=== PATIENT | female | born 1990 | race American Indian/Alaskan Native ===

== ENCOUNTER 2016-10-01 22:21 | Emergency (ER) | payer MEDICAID ==
[2016-10-01 22:34] VITALS: BP 121/78
--- NOTE | 2016-10-02 00:22 | EDM.PDOC ---
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 She report blood on tissue after wiping. denies any cramping or spotting. does have upper epigastric pain. denies any fever or chills. denies use of drugs or etoh. Onset: Today Duration: Hour(s):, Waxing/Waning Location: Reports: Pelvis Quality: Reports: Pressure (epigastric area.) Severity: Mild Improves with: Reports: None Worsens with: Reports: None Associated Symptoms: Reports: No Other Symptoms - Related Data Allergies Allergy/AdvReac Type Severity Reaction Status Date / Time cephalexin [From Keflex] Allergy Hives Verified 10/01/16 22:35 gabapentin Allergy Abdominal Verified 10/01/16 22:35 Cramps metoclopramide [From Reglan] Allergy Swelling Verified 10/01/16 22:35 Home Meds: Home Meds Acetaminophen [Tylenol] 650 mg PO ASDIRECTED 05/12/13 [History] Pregabalin [Lyrica] 150 mg PO TID 05/12/13 [History] ALPRAZolam [Alprazolam] 0.5 mg PO TID 12/24/15 [History] Past Medical History Cardiovascular History: Reports: Heart Murmur Gastrointestinal History: Reports: GERD, GI Bleed Other Gastrointestinal History: [employer] 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 History: Reports: Musculoskeletal History: Reports: Back Pain, Chronic, Fracture, Fibromyalgia Other Musculoskeletal History: RA, SCOLIOSIS, R HAND 5TH DIGIT REPAIR Neurological History: Reports: Concussion Psychiatric History: Reports: Anxiety, Suicide Attempt Endocrine/Metabolic History: Reports: Diabetes, Type II Other Immunologic History: RA - Infectious Disease History Infectious Disease History: Reports: Hepatitis C Other Infectious Disease History: unknown Social & Family History - Tobacco Use Smoking Status *Q: Current Every Day Smoker Years of Tobacco use: 12 Packs/Tins Daily: 0.2 - Caffeine Use Caffeine Use: Reports: Coffee, Soda - Alcohol Use Days Per Week of Alcohol Use: 0 - Recreational Drug Use Recreational Drug Use: No Drug Use in Last 12 Months: Yes Recreational Drug Type: Reports: Amphetamines (Speed), Marijuana/Hashish, Methamphetamine Recreational Drug Use Frequency: Patient Refuses To Answer - Living Situation & Occupation Living situation: Reports: Single, with Family (lives in [place], [place]) ED ROS GENERAL - Review of Systems Review Of Systems: See Below Constitutional: Reports: No Symptoms HEENT: Reports: No Symptoms Respiratory: Reports: No Symptoms Cardiovascular: Reports: No Symptoms Endocrine: Reports: No Symptoms GI/Abdominal: Reports: Abdominal Pain (epigastric), Other (vaginal spotting) : Reports: Other (IUP at 17 weeks) Musculoskeletal: Reports: No Symptoms Skin: Reports: No Symptoms Neurological: Reports: No Symptoms Psychiatric: Reports: No Symptoms Hematologic/Lymphatic: Reports: No Symptoms Immunologic: Reports: No Symptoms ED EXAM, GENERAL - Physical Exam Exam: See Below Exam Limited By: No Limitations General Appearance: Alert, WD/WN, No Apparent Distress Throat/Mouth: Normal Inspection, Normal Lips Head: Atraumatic, Normocephalic Neck: Normal Inspection, Supple, Non-Tender, Full Range of Motion Respiratory/Chest: No Respiratory Distress, Lungs Clear, Normal Breath Sounds, No Accessory Muscle Use Cardiovascular: Regular Rate, Rhythm, No Edema, No Murmur GI/Abdominal: Normal Bowel Sounds, Soft, Non-Tender, No Organomegaly, No Distention, No Abnormal Bruit, No Mass (Female) Exam: Deferred (declines exam, request ob ultrasound) Rectal (Female) Exam: Deferred Back Exam: Normal Inspection, Full Range of Motion, NT Extremities: Normal Inspection, Normal Range of Motion, Non-Tender, Normal Capillary Refill, No Pedal Edema Neurological: Alert Psychiatric: Normal Affect, Normal Mood Skin Exam: Warm, Dry, Intact, Normal Color, No Rash Lymphatic: No Adenopathy Course - Vital Signs Last Recorded V/S: Last Vital Signs Temp 36.7 C 10/01/16 22:32 Pulse 107 H 10/01/16 22:32 Resp 15 10/01/16 22:32 BP 121/78 10/01/16 22:32 Pulse Ox 98 10/01/16 22:32 - Orders/Labs/Meds Orders: Active Orders 24 hr Category Date Time Status OB Ltd 1 or More Fetus [US] Stat Exams 10/01/16 23:14 Taken Pantoprazole [ProTONIX] Med 10/02/16 00:30 Active 40 mg PO DAILY Medication Orders Pantoprazole Sodium (Protonix) 40 mg PO DAILY [facility] Last Admin: 10/02/16 00:30 Dose: 40 mg Labs: Laboratory Tests 10/01/16 Range/Units 23:00 Urine Color Yellow Urine Appearance Clear Urine pH 6.0 (4.5-8.0) Ur Specific [place] 1.025 (1.008-1.030) Urine Protein Negative (NEGATIVE) mg/dL Urine Glucose (UA) Normal (NEGATIVE) mg/dL Urine Ketones Negative (NEGATIVE) mg/dL Urine Occult Blood Negative (NEGATIVE) Urine Nitrite Negative (NEGATIVE) Urine Bilirubin Negative (NEGATIVE) Urine Urobilinogen Normal (NORMAL) mg/dL Ur Leukocyte Esterase Negative (NEGATIVE) Urine RBC 0-5 (0-5) Urine WBC 0-5 (0-5) Ur Epithelial Cells Moderate Amorphous Sediment Not seen Urine Bacteria Few Urine Mucus Few Meds: Medications Generic Name Dose Route Start Last Admin Trade Name Laura PRN Reason Stop Dose Admin Pantoprazole Sodium 40 mg 10/02/16 00:30 10/02/16 00:30 Protonix PO 40 mg DAILY [facility] Administration - Re-Assessments/Exams Free Text/Narrative Re-Assessment/Exam: 10/02/16 00:39 ob ultrasound reviewed with Patient -viable at 17 weeks -no abruption or placenta previa Departure - Departure Time of Disposition: 00:40 Disposition: Home, Self-Care 01 Condition: Good Clinical Impression: Spotting affecting in second trimester Epigastric abdominal tenderness Qualifiers: Presence of rebound: present Qualified Code(s): R10.826 - Epigastric rebound abdominal tenderness - Discharge Information Instructions: Vaginal Bleeding During , Third Trimester, [id number] Referrals: Karen James NP [Primary Care Provider] - Forms: ED Department Discharge Care Plan Goals: spotting in 17 weeks gestation -rest -push fluids -follow up with OB Provider this week return to ER if vaginal bleeding, cramping, pain , fever, chills or any concerns. Epigastric pain -trial of Protonix, given 40mg po in ER -follow up with OB Provider. - Problem List & Annotations (1) Epigastric abdominal tenderness SNOMED Code(s): 338433420 Code(s): R10.816 - EPIGASTRIC ABDOMINAL TENDERNESS Status: Acute Priority : Low Current Visit: Yes Qualifiers: Presence of rebound: present Qualified Code(s): R10.826 - Epigastric rebound abdominal tenderness (2) Spotting affecting in second trimester SNOMED Code(s): 396300255, 894454730, 585012729 Code(s): O26.852 - SPOTTING COMPLICATING , SECOND TRIMESTER Status : Acute Priority: High Current Visit: Yes - My Orders Last 24 Hours: My Active Orders 10/01/16 23:14 OB Ltd 1 or More Fetus [US] Stat 10/02/16 00:30 Pantoprazole [ProTONIX] 40 mg PO DAILY - Assessment/Plan Last 24 Hours: My Active Orders 10/01/16 23:14 OB Ltd 1 or More Fetus [US] Stat 10/02/16 00:30 Pantoprazole [ProTONIX] 40 mg PO DAILY Plan: spotting in 17 weeks gestation -rest -push fluids -follow up with OB Provider this week return to ER if vaginal bleeding, cramping, pain , fever, chills or any concerns. Epigastric pain -trial of Protonix, given 40mg po in ER -follow up with OB Provider.
[2016-10-02] MEDS ORDERED: Pantoprazole 40 MG Tab.CR PO SCH (00:30)
== END 2016-10-02 00:45 | disposition home or self-care (01) ==
LOC: JP.ED 22:21
DX: O26.852 Spotting complicating pregnancy, second trimester (principal); O99.89 Other specified diseases and conditions complicating pregnancy, childbirth and the puerperium; R10.826 Epigastric rebound abdominal tenderness; O99.612 Diseases of the digestive system complicating pregnancy, second trimester; K21.9 Gastro-esophageal reflux disease without esophagitis; O99.342 Other mental disorders complicating pregnancy, second trimester; F41.9 Anxiety disorder, unspecified; O99.282 Endocrine, nutritional and metabolic diseases complicating pregnancy, second trimester; E11.9 Type 2 diabetes mellitus without complications; O99.332 Smoking (tobacco) complicating pregnancy, second trimester; F17.210 Nicotine dependence, cigarettes, uncomplicated; Z3A.17 17 weeks gestation of pregnancy; Z88.1 Allergy status to other antibiotic agents; Z88.8 Allergy status to other drugs, medicaments and biological substances
CPT/HCPCS: 76815; 81001; 99284; A9270

== ENCOUNTER 2017-04-19 15:21 | Emergency (ER) | payer MEDICAID ==
[2017-04-19] MEDS ORDERED: Sodium Chloride 0.9% 1,000 ML IV SCH ×2 (16:30→16:45)
--- NOTE | 2017-04-19 16:34 | EDM.PDOC ---
<Alejandra Gaona - Last Filed: 04/19/17 16:28> ED HPI GENERAL MEDICAL PROBLEM - General Chief Complaint: General Stated Complaint: MEDICAL VIA NORTH Time Seen by Provider: 04/19/17 15:40 Source of Information: Reports: Patient History Limitations: Reports: No Limitations - History of Present Illness INITIAL COMMENTS - FREE TEXT/NARRATIVE: pt arrived with a elvated temp . History of chilling and coughing. Sh has a sore throat. She hurts all over. Onset: Other ( She has been sick for 2-3 days. ) Duration: Day(s): Location: Reports: Neck, Chest, Generalized, Other (Pt has generalized body aches. ) Associated Symptoms: Reports: Cough, Diaphoresis, Fever/Chills, Loss of Appetite , Nausea/Vomiting, Weakness, Other (diarrhea. ) Headache Pain Score (Numeric/FACES): 8 - Related Data Allergies Allergy/AdvReac Type Severity Reaction Status Date / Time cephalexin [From Keflex] Allergy Hives Verified 10/01/16 22:35 gabapentin Allergy Abdominal Verified 10/01/16 22:35 Cramps metoclopramide [From Reglan] Allergy Swelling Verified 10/01/16 22:35 Home Meds: Home Meds Acetaminophen [Tylenol] 650 mg PO ASDIRECTED 05/12/13 [History] Pregabalin [Lyrica] 150 mg PO TID 05/12/13 [History] ALPRAZolam [Alprazolam] 0.5 mg PO TID 12/24/15 [History] Past Medical History Cardiovascular History: Reports: Heart Murmur Gastrointestinal History: Reports: GERD, GI Bleed Other Gastrointestinal History: [employer] History: Reports: Musculoskeletal History: Reports: Back Pain, Chronic, Fracture, Fibromyalgia Other Musculoskeletal History: RA, SCOLIOSIS, R HAND 5TH DIGIT REPAIR Neurological History: Reports: Concussion Psychiatric History: Reports: Anxiety, Suicide Attempt Endocrine/Metabolic History: Reports: Diabetes, Type II Other Immunologic History: RA - Infectious Disease History Infectious Disease History: Reports: Hepatitis C Other Infectious Disease History: unknown Social & Family History - Tobacco Use Smoking Status *Q: Current Every Day Smoker Years of Tobacco use: 15 Packs/Tins Daily: 0.5 - Caffeine Use Caffeine Use: Reports: Soda - Alcohol Use Days Per Week of Alcohol Use: 0 - Recreational Drug Use Recreational Drug Use: No Drug Use in Last 12 Months: Yes Recreational Drug Type: Reports: Amphetamines (Speed), Marijuana/Hashish, Methamphetamine Recreational Drug Use Frequency: Patient Refuses To Answer - Living Situation & Occupation Living situation: Reports: Single, with Family (lives in [place], [place]) ED ROS GENERAL - Review of Systems Review Of Systems: See Below Constitutional: Reports: Fever, Chills, Malaise, Weakness HEENT: Reports: Throat Pain Respiratory: Reports: No Symptoms, Shortness of Breath, Cough Cardiovascular: Reports: No Symptoms Endocrine: Reports: No Symptoms GI/Abdominal: Reports: Nausea, Vomiting : Reports: No Symptoms Musculoskeletal: Reports: No Symptoms Skin: Reports: No Symptoms Neurological: Reports: No Symptoms ED EXAM, GENERAL - Physical Exam Exam: See Below Free Text/Narrative:: pt has shaking chills. She seemes agitated and is not able to give a good history. She has a sore throat, cough and vomiting. She has had shaking chills. Exam Limited By: No Limitations General Appearance: Alert, Anxious, Mild Distress Ears: Normal TMs Nose: Normal Inspection Throat/Mouth: Other ( mild redness in the throat) Head: Atraumatic Neck: Normal Inspection, Lymphadenopathy (R), Lymphadenopathy (L) Respiratory/Chest: No Respiratory Distress Cardiovascular: Regular Rate, Rhythm GI/Abdominal: Soft, Other (mild tenderness present) (Female) Exam: Deferred Rectal (Female) Exam: Deferred Back Exam: Normal Inspection Extremities: Normal Inspection Neurological: Alert, Oriented, Normal Cognition Course - Vital Signs Last Recorded V/S: Last Vital Signs Temp 100.3 F 04/19/17 18:57 Pulse 115 H 04/19/17 15:22 Resp 20 04/19/17 15:22 BP 116/65 04/19/17 18:57 Pulse Ox 99 04/19/17 15:22 - Orders/Labs/Meds Orders: Active Orders 24 hr Category Date Time Status Chest 2V [CR] Stat Exams 04/19/17 17:14 Taken CULTURE STREP A CONFIRMATION [RM] Stat Lab 04/19/17 16:34 Results STREP SCRN A RAPID W CULT CONF [RM] Stat Lab 04/19/17 16:34 Results Sodium Chloride 0.9% [Normal Saline] 1,000 ml Med 04/19/17 16:30 Active IV ASDIRECTED Sodium Chloride 0.9% [Normal Saline] 1,000 ml Med 04/19/17 16:45 Active IV ASDIRECTED Medication Orders Sodium Chloride (Normal Saline) 1,000 mls @ 999 mls/hr IV ASDIRECTED [facility] Last Admin: 04/19/17 16:34 Dose: 999 mls/hr Sodium Chloride (Normal Saline) 1,000 mls @ 999 mls/hr IV ASDIRECTED [facility] Last Admin: 04/19/17 18:41 Dose: 999 mls/hr Labs: Laboratory Tests 04/19/17 04/19/17 04/19/17 Range/Units 16:38 16:38 16:38 WBC 7.9 (4.5-11.0) K/uL RBC 5.82 H (3.30-5.50) M/uL Hgb 14.6 D (12.0-15.0) g/dL Hct 44.9 (36.0-48.0) % MCV 77 L (80-98) fL MCH 25 L (27-31) pg MCHC 33 (32-36) % Plt Count 317 (150-400) K/uL Neut % (Auto) 67 H (36-66) % Lymph % (Auto) 22 L (24-44) % [place] % (Auto) 10 H (2-6) % Eos % (Auto) 1 L (2-4) % Baso % (Auto) 1 (0-1) % Sodium 141 (140-148) mmol/L Potassium 4.1 (3.6-5.2) mmol/L Chloride 105 (100-108) mmol/L Carbon Dioxide 27 (21-32) mmol/L Anion Gap 8.8 (5.0-14.0) mmol/L BUN 9 (7-18) mg/dL Creatinine 0.9 D (0.6-1.0) mg/dL Est Cr Clr Drug Dosing 76.98 mL/min Estimated GFR (MDRD) > 60 (>60) Glucose 103 (74-106) mg/dL Lactic Acid 1.9 (0.4-2.0) mmol/L Calcium 9.1 D (8.5-10.1) mg/dL Total Bilirubin 0.3 (0.2-1.0) mg/dL AST 14 L (15-37) U/L ALT 22 (12-78) U/L Alkaline Phosphatase 58 (46-116) U/L Total Protein 7.3 (6.4-8.2) g/dL Albumin 3.8 (3.4-5.0) g/dL Globulin 3.5 (2.3-3.5) g/dL Albumin/Globulin Ratio 1.1 L (1.2-2.2) Meds: Medications Generic Name Dose Route Start Last Admin Trade Name Freq PRN Reason Stop Dose Admin Sodium Chloride 1,000 mls @ 999 mls/hr 04/19/17 16:30 04/19/17 16:34 Normal Saline IV 999 mls/hr ASDIRECTED [facility] Administration Sodium Chloride 1,000 mls @ 999 mls/hr 04/19/17 16:45 04/19/17 18:41 Normal Saline IV 999 mls/hr ASDIRECTED [facility] Administration Discontinued Medications Generic Name Dose Route Start Last Admin Trade Name Freq PRN Reason Stop Dose Admin Acetaminophen 650 mg 04/19/17 16:35 04/19/17 16:40 Tylenol PO 04/19/17 16:36 650 mg NOW ONE Administration Guaifenesin/Codeine Phosphate 10 ml 04/19/17 17:59 04/19/17 18:11 Robitussin Ac PO 04/19/17 18:00 10 ml ONETIME ONE Administration Hydromorphone HCl 1 mg 04/19/17 18:50 04/19/17 18:54 Dilaudid IVPUSH 04/19/17 18:51 1 mg ONETIME ONE Administration Ketorolac Tromethamine 30 mg 04/19/17 16:35 04/19/17 16:43 Toradol IVPUSH 04/19/17 16:36 Not Given ONETIME ONE Ketorolac Tromethamine 30 mg 04/19/17 17:59 04/19/17 18:19 Toradol IVPUSH 04/19/17 18:00 Not Given ONETIME ONE Departure - Departure Disposition: Home, Self-Care 01 Clinical Impression: Bronchitis - Discharge Information Referrals: PCP,None [Primary Care Provider] - Forms: ED Department Discharge Additional Instructions: Take full course of antibiotics, use Robitussin-AC as needed help suppress the cough, continue use Tylenol to help suppress the fever, please follow-up with your primary care provider on Friday if not better, call return to the emergency department worsening of symptoms <OfficerFederico - Last Filed: 04/19/17 19:20> Course - Re-Assessments/Exams Free Text/Narrative Re-Assessment/Exam: 04/19/17 18:00 Took over care from Dr. Gaona at 1730, continues to have cough headache body aches I did review lab work with her, will try Toradol for body aches and Robitussin-AC for the cough Does have an allergy to Toradol this was picked up by nursing staff therefore was not given, will try hydromorphone 04/19/17 18:51 Departure - Departure Time of Disposition: 19:19 Condition: Good - Assessment/Plan Plan: Assessment Acuity = acute Site and laterality = bronchitis Etiology = probable bacterial cause Manifestations = cough Location of injury = Home Lab values = CBC, CMP unremarkable lactic acid normal 1.9 chest x-ray I did review films myself I cannot appreciate any acute process, the official read from radiology is pending Plan She does have an allergy to NSAIDs which cause GI bleed she could take Toradol if needed this was not provided, was given 1 mg Dilaudid had good relief of her headache Robitussin-AC helped with the cough plan is discharge home with azithromycin 5 day course as well as Robitussin-AC 10 mL 3 times a day when necessary she can have follow-up appointment with her primary care on Friday This note was dictated using [employer] voice recognition software please call with any questions on syntax or shauna.
[2017-04-19] MEDS ORDERED: Ketorolac 30 MG/ML SDV IVPUSH ONE ×2 (16:35→17:59)
[2017-04-19] MEDS ORDERED: Acetaminophen 325 MG Tab PO ONE (16:35)
[2017-04-19] MEDS ORDERED: Codeine/guaiFENesin 100mg-10 MG/5 ML Syrup 10 ML Cup PO ONE (17:59)
[2017-04-19] MEDS ORDERED: HYDROmorphone 1 MG/ML Syringe IVPUSH ONE (18:50)
[2017-04-19 18:58] VITALS: BP 116/65
--- NOTE | 2017-04-21 09:15 | CR ---
Chest 2V HISTORY: fever and chilling. COMPARISON: 03/30/2006 FINDINGS: Lungs appear clear and normally aerated. Cardiomediastinal silhouette is within normal limits. No vas cular redistribution or pleural fluid can be seen. Bony structures and soft tissues are unremarkable. IMPRESSION: No acute chest abnormality identified.
== END 2017-04-19 19:40 | disposition home or self-care (01) ==
LOC: JP.ED 15:21
DX: J40 Bronchitis, not specified as acute or chronic (principal); E11.9 Type 2 diabetes mellitus without complications; F17.210 Nicotine dependence, cigarettes, uncomplicated; Z88.1 Allergy status to other antibiotic agents; Z88.8 Allergy status to other drugs, medicaments and biological substances; Z79.899 Other long term (current) drug therapy
CPT/HCPCS: 36415; 71046; 80053; 83605; 85025; 87077; 87081; 87430; 87804; 96361; 96374; 99284; A9270; J1170; J7040

== ENCOUNTER 2018-07-14 17:59 | Emergency (ER) | payer MEDICAID ==
[2018-07-14 18:19] VITALS: BP 110/79
[2018-07-14] MEDS ORDERED: Lidocaine 1% 20 ML MDV INJECT ONE (18:32)
[2018-07-14] MEDS ORDERED: Bacitracin Oint 1 GM U/D Packet TOP ONE (18:33)
--- NOTE | 2018-07-14 18:36 | EDM.PDOC ---
ED HPI GENERAL MEDICAL PROBLEM - General Chief Complaint: Laceration Stated Complaint: cut arm working on car Time Seen by Provider: 07/14/18 18:33 Source of Information: Reports: Patient History Limitations: Reports: No Limitations - History of Present Illness INITIAL COMMENTS - FREE TEXT/NARRATIVE: pt arrived with a 2 inch laceration in the left forearm area onthe mccarthy aspect. Onset: Today, Sudden, Other (pt states she was working on a car and she cut her self on some of the parts. ) Duration: Hour(s): Location: Reports: Upper Extremity, Left Associated Symptoms: Reports: No Other Symptoms Left Arm Pain Score (Numeric/FACES): 5 - Related Data Allergies Allergy/AdvReac Type Severity Reaction Status Date / Time cephalexin [From Keflex] Allergy Hives Verified 01/17/18 12:31 gabapentin Allergy Abdominal Verified 01/17/18 12:31 Cramps metoclopramide [From Reglan] Allergy Swelling Verified 01/17/18 12:31 Home Meds: Home Meds Acetaminophen/Codeine [Tylenol with Codeine No.3 300MG/30MG] 01/17/18 [History] Doxepin [SINEquan] 01/17/18 [History] FLUoxetine HCl [Prozac] 01/17/18 [History] Past Medical History Cardiovascular History: Reports: Heart Murmur Gastrointestinal History: Reports: GERD, GI Bleed Other Gastrointestinal History: [employer] History: Reports: Musculoskeletal History: Reports: Back Pain, Chronic, Fracture, Fibromyalgia Other Musculoskeletal History: RA, SCOLIOSIS, R HAND 5TH DIGIT REPAIR Neurological History: Reports: Concussion Psychiatric History: Reports: Anxiety, Suicide Attempt Endocrine/Metabolic History: Reports: Diabetes, Type II Other Immunologic History: RA - Infectious Disease History Infectious Disease History: Reports: Hepatitis C Other Infectious Disease History: unknown Social & Family History - Tobacco Use Smoking Status *Q: Current Every Day Smoker Years of Tobacco use: 15 Packs/Tins Daily: 0.5 - Caffeine Use Caffeine Use: Reports: Coffee, Energy Drinks, Soda - Recreational Drug Use Recreational Drug Use: Yes Recreational Drug Type: Reports: Marijuana/Hashish - Living Situation & Occupation Living situation: Reports: Single, with Family (lives in [place], [place]) ED ROS GENERAL - Review of Systems Review Of Systems: See Below Constitutional: Reports: No Symptoms HEENT: Reports: No Symptoms Respiratory: Reports: No Symptoms Cardiovascular: Reports: No Symptoms Endocrine: Reports: No Symptoms GI/Abdominal: Reports: No Symptoms : Reports: No Symptoms Musculoskeletal: Reports: Other (pt has a 2 inch laceration on the mccarthy aspect of the left arm--lower. ) ED EXAM, SKIN/RASH Exam: See Below Text/Narrative:: pt has a 2 inch laceration of the left forearm. She is current with her tetanus. Exam Limited By: No Limitations General Appearance: Alert, Anxious, Moderate Distress Ears: Normal TMs Nose: Normal Inspection Throat/Mouth: Normal Inspection Head: Atraumatic Neck: Normal Inspection Extremities: Other ( pt has a 2 inch laceration of ther forearm. This is deep to the subq. She has normal sensation and normal motion of fingers. ) Course - Vital Signs Last Recorded V/S: Last Vital Signs Temp 36.3 C 07/14/18 18:19 Pulse 86 07/14/18 18:19 Resp 16 07/14/18 18:19 BP 110/79 07/14/18 18:19 Pulse Ox 99 07/14/18 18:19 - Orders/Labs/Meds Meds: Medications Discontinued Medications Generic Name Dose Route Start Last Admin Trade Name Freq PRN Reason Stop Dose Admin Bacitracin 1 dose 07/14/18 18:33 07/14/18 18:43 Bacitracin Oint 1 Gm TOP 07/14/18 18:34 1 dose ONETIME ONE Administration Lidocaine HCl 20 ml 07/14/18 18:32 07/14/18 18:43 Xylocaine 1% INJECT 07/14/18 18:33 20 ml ONETIME ONE Administration - Re-Assessments/Exams Free Text/Narrative Re-Assessment/Exam: 07/14/18 19:12 pt had a 2 inch laceration on the left forearm. The area was infiltrated with lidocsine and scrubbed well. She had sensation in her hand that was normal. She was able to move her fingers with out difficulty. The wound was closed in a layered manner with 5-0 chromic and 5-0 prolene. It was dressed with bacatracin. Departure - Departure Time of Disposition: 19:14 Disposition: Home, Self-Care 01 Condition: Fair Clinical Impression: Laceration - Discharge Information Referrals: PCP,None [Primary Care Provider] - Forms: ED Department Discharge Care Plan Goals: keep dry , no fuirther ointments, cover with a dry dressing, SR in 7-8 days, amoxicillin 500mg tid for 5 days. motrin 600mg q6h prn for pain
[2018-07-14] MEDS ORDERED: Acetaminophen/HYDROcodone 325-5 MG Tab PO ONE (19:18)
[2018-07-14] MEDS ORDERED: Ibuprofen 600 MG Tab PO ONE (19:18)
== END 2018-07-14 19:27 | disposition home or self-care (01) ==
LOC: JP.ED 17:59
DX: S51.812A Laceration without foreign body of left forearm, initial encounter (principal); F17.210 Nicotine dependence, cigarettes, uncomplicated; E11.9 Type 2 diabetes mellitus without complications; F41.9 Anxiety disorder, unspecified; Z88.1 Allergy status to other antibiotic agents; Z88.8 Allergy status to other drugs, medicaments and biological substances; W26.8XXA Contact with other sharp object(s), not elsewhere classified, initial encounter
CPT/HCPCS: 12032; 99282; J2001; 12014

== ENCOUNTER 2018-10-03 18:48 | Emergency (ER) | payer MEDICAID ==
[2018-10-03 18:54] VITALS: BP 118/62; PULSE 68
[2018-10-03] MEDS ORDERED: Lactated Ringers 1,000 ML IV SCH (19:00)
[2018-10-03] MEDS ORDERED: HYDROmorphone 0.5 MG/0.5 ML Syringe IVPUSH ONE (19:01)
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
[2018-10-03] MEDS ORDERED: Ondansetron 4 MG/2 ML SDV IVPUSH ONE (19:24)
[2018-10-03] MEDS ORDERED: Acetaminophen 500 MG Tab PO ONE (20:15)
--- NOTE | 2018-10-03 20:49 | CRLUS ---
INDICATION: Trauma. Lower abdominal pain. First-trimester . TECHNIQUE: Transabdominal imaging. COMPARISON: None. FINDINGS: There is a single living intrauterine . heart rate is 155 BPM. Fetus is in the cephalic presentation. Placenta is anterior in location. No appreciable intraplacental or retroplacental hemorrhage. Amniotic fluid level appears normal. Average crown-rump length is approximately 7.87 cm, which corresponds to 14 weeks and 0 days. IMPRESSION: Single live intrauterine . No acute complication is identified. If clinical symptoms persist or clinical suspicion is high for an acute injury based on the severity of the trauma, recommend short-term follow-up ultrasound. Dictated by Allen Restrepo MD @ 10/03/2018 8:48:12 PM Dictated by: Allen Restrepo MD @ 10/03/2018 20:48:36 (Electronically Signed)
== END 2018-10-03 21:19 | disposition home or self-care (01) ==
LOC: JP.ED 18:48
DX: O99.89 Other specified diseases and conditions complicating pregnancy, childbirth and the puerperium (principal); R10.30 Lower abdominal pain, unspecified; O24.312 Unspecified pre-existing diabetes mellitus in pregnancy, second trimester; E11.9 Type 2 diabetes mellitus without complications; Z88.1 Allergy status to other antibiotic agents; Z88.8 Allergy status to other drugs, medicaments and biological substances; Z3A.14 14 weeks gestation of pregnancy; V49.50XA Passenger injured in collision with unspecified motor vehicles in traffic accident, initial encounter
CPT/HCPCS: 76815; 96361; 96374; 96375; 99284; A9270; J1170; J2405; J7120; 99283

== ENCOUNTER 2022-11-11 22:22 | Emergency (ER) | payer MEDICAID ==
[2022-11-11 22:29] VITALS: BP 129/69; PULSE 90
[2022-11-11 22:56] LABS: BASOPHILS ABSOLUTE AUTO 0.03 K/uL (0.00-0.10); BASOPHILS PERCENT AUTO 0.3 % (0.1-1.3); EOSINOPHILS PERCENT AUTO 1.1 % (0.0-5.4); HEMATOCRIT 41.6 % (34.3-46.0); HEMOGLOBIN 13.6 g/dL (11.2-15.5); IMMATURE GRAN ABSOLUTE AUTO 0.04 K/uL (0.00-0.23); IMMATURE GRAN PERCENT AUTO 0.4 % (0.0-0.7); LYMPHOCYTES ABSOLUTE AUTO 2.19 K/uL (0.8-3.3); LYMPHOCYTES PERCENT AUTO 23.9 % (11.4-47.7); MEAN CORPUSCULAR HEMOGLOBIN 26.8 pg (31.6-35.5); MEAN CORPUSCULAR HGB CONC 32.7 g/dL (31.6-35.5); MEAN CORPUSCULAR VOLUME 81.9 fL (81.4-99.0); MONOCYTES ABSOLUTE AUTO 0.57 K/uL (0.20-0.90); MONOCYTES PERCENT AUTO 6.2 % (3.3-12.6); NEUTROPHILS ABSOLUTE AUTO 6.23 K/uL (1.0-7.6); NEUTROPHILS PERCENT AUTO 68.1 % (40.0-78.1); PLATELET COUNT,PLT 284 K/uL (130-375); RED BLOOD CELL COUNT 5.08 M/uL (3.77-5.24); WHITE BLOOD CELL COUNT,WBC 9.2 K/uL (3.2-11.0)
[2022-11-11 23:16] LABS: ALANINE AMINOTRANSFERASE,ALT 78 U/L (12-78); ALBUMIN 3.5 g/dL (3.4-5.0); ALKALINE PHOSPHATASE 80 U/L (46-116); ASPARTATE AMNIOTRANSFERASE,AST 30 U/L (15-37); BILIRUBIN TOTAL 0.2 mg/dL (0.2-1.0); BLOOD UREA NITROGEN,BUN 8 mg/dL (7-18); CALCIUM 8.5 mg/dL (8.5-10.1); CARBON DIOXIDE,CO2 24 mmol/L (21-32); CHLORIDE,CL 102 mmol/L (100-108); EST CRCL DRUG DOSING (CG) 67.64 mL/min; ESTIMATED GFR 76 mL/min (>60); GLUCOSE RANDOM 266 mg/dL (74-106); POTASSIUM,K 3.7 mmol/L (3.6-5.2); PROTEIN TOTAL,TP 7.1 g/dL (6.4-8.2); SODIUM,NA 139 mmol/L (140-148)
[2022-11-11 23:17] LABS: ANION GAP 16.7 mmol/L (5.0-14.0)
== END 2022-11-11 23:36 | disposition home or self-care (01) ==
LOC: JP.ED 22:22
DX: F10.129 Alcohol abuse with intoxication, unspecified (principal); K21.9 Gastro-esophageal reflux disease without esophagitis; E11.9 Type 2 diabetes mellitus without complications; Z72.0 Tobacco use; Z88.1 Allergy status to other antibiotic agents; Z88.8 Allergy status to other drugs, medicaments and biological substances; Z88.5 Allergy status to narcotic agent; Z79.84 Long term (current) use of oral hypoglycemic drugs; Z79.899 Other long term (current) drug therapy; Y90.5 Blood alcohol level of 100-119 mg/100 ml
CPT/HCPCS: 36415; 80053; 80307; 85025; 99284

== ENCOUNTER 2023-02-04 18:22 | Emergency (ER) | payer MEDICAID ==
[2023-02-04 19:24] VITALS: BP 130/92; PULSE 84
== END 2023-02-04 20:04 | disposition home or self-care (01) ==
LOC: JP.ED 18:22
DX: K02.9 Dental caries, unspecified (principal); K21.9 Gastro-esophageal reflux disease without esophagitis; F17.210 Nicotine dependence, cigarettes, uncomplicated; E11.9 Type 2 diabetes mellitus without complications; Z79.84 Long term (current) use of oral hypoglycemic drugs; Z79.899 Other long term (current) drug therapy; Z88.1 Allergy status to other antibiotic agents; Z88.6 Allergy status to analgesic agent; Z88.8 Allergy status to other drugs, medicaments and biological substances
CPT/HCPCS: 99282

== ENCOUNTER 2023-04-20 14:03 | Emergency (ER) | payer MEDICAID ==
[2023-04-20 14:20] VITALS: BP 129/74; PULSE 87
== END 2023-04-20 14:41 | disposition home or self-care (01) ==
LOC: JP.ED 14:03
DX: K08.89 Other specified disorders of teeth and supporting structures (principal); K21.9 Gastro-esophageal reflux disease without esophagitis; E11.9 Type 2 diabetes mellitus without complications; F17.210 Nicotine dependence, cigarettes, uncomplicated; Z88.8 Allergy status to other drugs, medicaments and biological substances; Z79.84 Long term (current) use of oral hypoglycemic drugs; Z79.899 Other long term (current) drug therapy
CPT/HCPCS: 99282

== ENCOUNTER 2023-05-01 11:30 | Emergency (ER) | payer MEDICAID ==
[2023-05-01 12:32] VITALS: BP 127/72; PULSE 63
[2023-05-01 13:39] LABS: BILIRUBIN,URINE NEGATIVE (NEGATIVE); COLOR,URINE YELLOW (YELLOW); GLUCOSE,URINE 500 mg/dL (NEGATIVE); KETONES,URINE NEGATIVE (NEGATIVE); LEUKOCYTE ESTERASE,URINE NEGATIVE (NEGATIVE); NITRITE,URINE NEGATIVE (NEGATIVE); OCCULT BLOOD,URINE NEGATIVE (NEGATIVE); PROTEIN,URINE NEGATIVE (NEGATIVE); UROBILINOGEN,URINE 0.2 EU/dL (0.2-1.0)
[2023-05-01 13:44] LABS: APPEARANCE,URINE SLIGHTLY CLOUDY (CLEAR)
[2023-05-01 13:45] LABS: AMORPHOUS SEDIMENT,URINE NOT SEEN; BACTERIA,URINE FEW; EPITHELIAL CELLS,URINE FEW; MUCUS,URINE NOT SEEN; RBC,URINE 0-5 (0-5); WBC,URINE 0-5 (0-5)
[2023-05-01 13:49] LABS: CALCIUM 8.5 mg/dL (8.5-10.1); CREATININE 0.7 mg/dL (0.6-1.0); EST CRCL DRUG DOSING (CG) 93.68 mL/min; POTASSIUM,K 4.1 mmol/L (3.6-5.2)
[2023-05-01 13:55] LABS: ANION GAP 11.1 mmol/L (5.0-14.0)
== END 2023-05-01 14:18 | disposition home or self-care (01) ==
LOC: JP.ED 11:30
DX: K04.7 Periapical abscess without sinus (principal); E11.65 Type 2 diabetes mellitus with hyperglycemia; E11.9 Type 2 diabetes mellitus without complications; K21.9 Gastro-esophageal reflux disease without esophagitis; F17.210 Nicotine dependence, cigarettes, uncomplicated; Z79.84 Long term (current) use of oral hypoglycemic drugs; Z79.899 Other long term (current) drug therapy; Z88.1 Allergy status to other antibiotic agents; Z88.8 Allergy status to other drugs, medicaments and biological substances
CPT/HCPCS: 36415; 80048; 81001; 84484; 84703; 93005; 93010; 99285

== ENCOUNTER 2024-03-23 14:15 | Emergency (ER) | payer MEDICAID ==
[2024-03-23 14:25] LABS: BASOPHILS ABSOLUTE AUTO 0.06 K/uL (0.00-0.10); BASOPHILS PERCENT AUTO 0.5 % (0.1-1.3); EOSINOPHILS ABSOLUTE AUTO 0.28 K/uL (0.00-0.40); EOSINOPHILS PERCENT AUTO 2.4 % (0.0-5.4); HEMOGLOBIN 11.7 g/dL (11.2-15.5); IMMATURE GRAN PERCENT AUTO 0.2 % (0.0-0.7); LYMPHOCYTES ABSOLUTE AUTO 5.65 K/uL (0.8-3.3); LYMPHOCYTES PERCENT AUTO 49.4 % (11.4-47.7); MEAN CORPUSCULAR HEMOGLOBIN 25.9 pg (31.6-35.5); MEAN CORPUSCULAR HGB CONC 33.4 g/dL (31.6-35.5); MEAN CORPUSCULAR VOLUME 77.6 fL (81.4-99.0); MONOCYTES ABSOLUTE AUTO 0.66 K/uL (0.20-0.90); MONOCYTES PERCENT AUTO 5.8 % (3.3-12.6); NEUTROPHILS ABSOLUTE AUTO 4.76 K/uL (1.0-7.6); NEUTROPHILS PERCENT AUTO 41.7 % (40.0-78.1); PLATELET COUNT,PLT 321 K/uL (130-375); RED BLOOD CELL COUNT 4.51 M/uL (3.77-5.24); WHITE BLOOD CELL COUNT,WBC 11.4 K/uL (3.2-11.0)
[2024-03-23 14:46] LABS: IMMATURE GRAN ABSOLUTE AUTO 0.02 K/uL (0.00-0.23)
[2024-03-23 14:47] LABS: ALANINE AMINOTRANSFERASE,ALT 25 U/L (12-78); ALBUMIN 3.5 g/dL (3.4-5.0); ALKALINE PHOSPHATASE 62 U/L (46-116); ANION GAP 8.1 mmol/L (5.0-14.0); ASPARTATE AMNIOTRANSFERASE,AST 14 U/L (15-37); BILIRUBIN TOTAL 0.2 mg/dL (0.2-1.0); BLOOD UREA NITROGEN,BUN 10 mg/dL (7-18); CALCIUM 8.1 mg/dL (8.5-10.1); CARBON DIOXIDE,CO2 30 mmol/L (21-32); CHLORIDE,CL 103 mmol/L (100-108); CREATININE 0.9 mg/dL (0.6-1.0); EST CRCL DRUG DOSING (CG) 73.75 mL/min; ESTIMATED GFR 86 mL/min (>60); GLUCOSE RANDOM 125 mg/dL (74-106); SODIUM,NA 141 mmol/L (140-148)
[2024-03-23 14:49] LABS: C-REACTIVE PROTEIN < 0.50 mg/dL (<0.50)
[2024-03-23] MEDS: LORazepam 2 MG/ML SDV IVPUSH ONE (15:10)
[2024-03-23] MEDS: HYDROmorphone 0.5 MG/0.5 ML Syringe IVPUSH ONE (15:11)
[2024-03-23 18:09] VITALS: BP 110/54; PULSE 64
== END 2024-03-23 17:20 | disposition home or self-care (01) ==
LOC: JP.ED 14:15
DX: R07.89 Other chest pain (principal); E11.9 Type 2 diabetes mellitus without complications; K21.9 Gastro-esophageal reflux disease without esophagitis; F17.210 Nicotine dependence, cigarettes, uncomplicated; Z79.899 Other long term (current) drug therapy; Z79.84 Long term (current) use of oral hypoglycemic drugs; Z88.1 Allergy status to other antibiotic agents; Z88.8 Allergy status to other drugs, medicaments and biological substances
CPT/HCPCS: 36415; 71045; 71045-26; 80053; 83690; 84484; 85025; 85379; 86140; 93005; 96374; 96375; 99284; 99285-25; J2060